=== PATIENT | female | born 1990 | race Caucasian/White ===

== ENCOUNTER 2019-01-22 21:32 | Emergency (ER) | payer OTHER ==
[~2019-01-22] VITALS: Ht 157.5 cm; Wt 70.3 kg
[~2019-01-22 21:32] MED LIST: BACTRIM DS TAB1 EACH PO; EXCEDRIN EXTRA1 EAC1 PO; IBUPROFEN400 MG PO; KEFLEX500 MG PO; MOTRIN IB200 MG PO; NAPROSYN500 MG PO; NORCO 5-325 TA1 EACH PO; PREVACID30 M1 PO; TYLENOL325 MG PO; ULTRAM50 MG PO; ZOFRAN ODT8 MG PO
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
[2019-01-23] MEDS ORDERED: PERCOCET 5-3251 EACH PO (00:04)
[2019-01-23] MEDS ORDERED: ZOFRAN8 MG PO (00:20)
[2019-01-23] MEDS ORDERED: ONDANSETRON ODT4 MG SL (07:31)
[2019-01-23] MEDS ORDERED: PROMETHAZINE HC25 M1 PO (08:38)
== END 2019-01-23 00:37 | disposition home or self-care (01) ==
LOC: ED 21:32
DX: S49.002A Unspecified physeal fracture of upper end of humerus, left arm, initial encounter for closed fracture (principal); F17.200 Nicotine dependence, unspecified, uncomplicated; Z90.49 Acquired absence of other specified parts of digestive tract; V89.2XXA Person injured in unspecified motor-vehicle accident, traffic, initial encounter
CPT/HCPCS: 70450; 71260; 72125; 73060; 74177; 80053; 82150; 82550; 83690; 85025; 86850; 86900; 86901; 96361; 99284-25; G0480; J1170; J2270; J2405; J2550; J7030; Q9967

== ENCOUNTER 2019-01-23 07:12 | Emergency (ER) | payer OTHER ==
[~2019-01-23] VITALS: Ht 165.1 cm; Wt 81.2 kg
[~2019-01-23 07:12] MED LIST changes: +PERCOCET 5-3251 EACH PO; +ZOFRAN8 MG PO
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
[2019-01-23] MEDS ORDERED: ONDANSETRON ODT4 MG SL (07:31)
[2019-01-23] MEDS ORDERED: PROMETHAZINE HC25 M1 PO (08:38)
== END 2019-01-23 10:13 | disposition home or self-care (01) ==
LOC: ED 07:12
PROC: 2W3BX1Z Immobilization of Left Upper Arm using Splint (ICD-10-PCS; principal; 2019-01-23)
DX: S42.302D Unspecified fracture of shaft of humerus, left arm, subsequent encounter for fracture with routine healing (principal); Z90.49 Acquired absence of other specified parts of digestive tract
CPT/HCPCS: 29105; 73060; 99283-25; J1170; J2550

== ENCOUNTER 2019-01-24 22:22 | Emergency (ER) | payer OTHER ==
[~2019-01-24] VITALS: Ht 165.1 cm; Wt 81.2 kg
[~2019-01-24 22:22] MED LIST changes: +ONDANSETRON ODT4 MG SL; +PROMETHAZINE HC25 M1 PO
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
== END 2019-01-25 01:20 | disposition home or self-care (01) ==
LOC: ED 22:22
DX: S42.302D Unspecified fracture of shaft of humerus, left arm, subsequent encounter for fracture with routine healing (principal); F17.200 Nicotine dependence, unspecified, uncomplicated; Z90.49 Acquired absence of other specified parts of digestive tract
CPT/HCPCS: 73060; 96372; 99283-25; J1170; J2550

== ENCOUNTER 2019-01-28 07:50 | Day surgery (SDC) | payer OTHER ==
[~2019-01-28] VITALS: Ht 165.1 cm; Wt 77.1 kg
[2019-01-28] MEDS ORDERED: CELECOXIB200 MG PO (10:50)
[2019-01-28] MEDS ORDERED: SENNA LAX8.6 MG PO (10:51)
[2019-01-28] MEDS ORDERED: GABAPENTIN300 MG PO (10:51)
[2019-01-28] MEDS ORDERED: OXYCODONE HCL5 MG PO (10:52)
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
--- NOTE | 2019-01-28 11:47 | NUR ---
PATIENT IS UP TO THE BATHROOM. PATIENT AMBULATES WELL AND REPORTS SUCCESSFUL VOID. PATIENT IS BACK IN BED. CRYO CUFF ON LEFT ARM. SCDS CONNECTED AND RUNNING. CALL LIGHT W/IN REACH. FAMILY AT BEDSIDE. ICED WATER AND SALTINE CRACKERS GIVEN.
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
== END 2019-01-28 12:55 | disposition home or self-care (01) ==
LOC: OPS 07:50 → DS 07:50 → OPS 10:15 → DS 10:15 → OPS 12:55
PROVIDERS: Specialist
PROC: 0PSG04Z Reposition Left Humeral Shaft with Internal Fixation Device, Open Approach (ICD-10-PCS; principal; 2019-01-28 10:15)
DX: S42.302A Unspecified fracture of shaft of humerus, left arm, initial encounter for closed fracture (principal); J45.909 Unspecified asthma, uncomplicated; F41.9 Anxiety disorder, unspecified; V89.2XXA Person injured in unspecified motor-vehicle accident, traffic, initial encounter
CPT/HCPCS: 01630; 64415; 73060; 76942; C1713; J0131; J0690; J1100; J1885; J2250; J2405; J2704; J3010

== ENCOUNTER → 2019-06-08 | Emergency (ER) | payer OTHER ==
[~2019-06-08] VITALS: Ht 162.6 cm; Wt 77.1 kg
[~2019-06-08] MED LIST changes: +CELECOXIB200 MG PO; +CYCLOBENZAPRINE10 MG PO; +GABAPENTIN300 MG PO; +OXYCODONE HCL5 MG PO; +SENNA LAX8.6 MG PO; +VALIUM5 MG PO
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
== END ==
LOC: ED 12:51
DX: S46.912A Strain of unspecified muscle, fascia and tendon at shoulder and upper arm level, left arm, initial encounter (principal); X50.9XXA Other and unspecified overexertion or strenuous movements or postures, initial encounter
CPT/HCPCS: 96372; 99283; J1885

== ENCOUNTER 2019-09-07 20:26 | Emergency (ER) | payer OTHER ==
[~2019-09-07] VITALS: Ht 162.6 cm; Wt 79.4 kg
--- OUTSIDE RECORDS SUMMARY | 2019-09-07 20:30 | XMS ---
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 Care History Medical/Surgical 06/09/2019 [facility] - Patient is currently established with [facility]. If patient is seen in the ED during business hours. Please contact CHWs at [facility]. Care Recommendation: This patient has had 5 or more Emergency Department visits in the last 12 months.\T\nbsp; Patient requires education on the scope and purpose of the ED as an acute care provider not a Primary Care Provider and should not be utilized for chronic conditions.\T\nbsp; These are guidelines and the provider should exercise clinical judgment when providing care. 01/26/2019 [facility] - PATIENT CURRENTLY WORKING WITH ORTHOPEDIC SURGEON DR ADAMS. Sanchez VISIT COUNT (12 MO.) 5 [facility] TOTAL 5 NOTE: Visits indicate total known visits. ED/UCC VISIT TRACKING (12 MO.) 09/07/2019 20:27 [facility] [place] TYPE: Emergency COMPLAINT: - TOE/FOOT INJURY 06/08/2019 15:11 [facility] [place] TYPE: Emergency COMPLAINT: - LEFT SHOULDER PAIN, INJ DIAGNOSES: - Other and unspecified ovrexrtn or strnous move/pstr, init - Strain unsp musc/fasc/tend at shldr/up arm, left arm, init - Pain in left shoulder 01/24/2019 22:23 [facility] [place] TYPE: Emergency [...] humerus, left arm, subs for fx w mariannen dontrell 01/22/2019 21:33 [facility] [place] TYPE: Emergency [...] visits to display in this time frame [id number]
== END 2019-09-07 22:55 | disposition home or self-care (01) ==
LOC: ED 20:26
DX: S90.31XA Contusion of right foot, initial encounter (principal); S90.111A Contusion of right great toe without damage to nail, initial encounter; X58.XXXA Exposure to other specified factors, initial encounter; F17.200 Nicotine dependence, unspecified, uncomplicated
CPT/HCPCS: 73630; 99283-25; A9270

== ENCOUNTER 2020-09-06 11:00 | Emergency (ER) | payer OTHER ==
[~2020-09-06] VITALS: Ht 162.6 cm; Wt 87.5 kg
--- OUTSIDE RECORDS SUMMARY | 2020-09-06 11:02 | XMS ---
PreManage Notification: FARHEEN WETZEL Security Manager Radio Events No recent Security Events currently on file CRITERIA MET - [facility] - Has Care Guidelines CARE PROVIDERS YAIMA BROWN Internal Medicine 06/09/2019-Current PHONE: [phone] Kraig has no Care Guidelines for this patient. Care History Medical/Surgical 09/08/2019 [facility] Patient will schedule a follow up visit with Dr. Brown when she has a chance to check her schedule. 06/09/2019 [facility] - Patient is currently established with [facility]. If patient is seen in the ED during business hours. Please contact CHWs at [facility]. Care Recommendation: This patient has had 5 or more Emergency Department visits in the last 12 months.\T\nbsp; Patient requires education on the scope and purpose of the ED as an acute care provider not a Primary Care Provider and should not be utilized for chronic conditions.\T\nbsp; These are guidelines and the provider should exercise clinical judgment when providing care. 01/26/2019 [facility] - PATIENT CURRENTLY WORKING WITH ORTHOPEDIC SURGEON DR MONTEJO. Daniel VISIT COUNT (12 MO.) [address] [facility] TOTAL 2 NOTE: Visits indicate total known visits. ED/UCC VISIT TRACKING (12 MO.) 09/06/2020 11:00 [facility] [place] TYPE: Emergency COMPLAINT: - NAUSEA, DIZZY 09/07/2019 20:27 [facility] [place] TYPE: Emergency COMPLAINT: - TOE/FOOT INJURY DIAGNOSES: - Pain in right foot - Nicotine dependence, unspecified, uncomplicated - Contusion of right foot, initial encounter - Contusion of right great toe without damage to nail, initial encounter - Exposure to other specified factors, initial encounter INPATIENT VISIT TRACKING (12 MO.) No inpatient visits to display in this time frame [id number]
[2020-09-06] MEDS ORDERED: ONDANSETRON ODT8 MG PO (13:21)
== END 2020-09-06 13:43 | disposition home or self-care (01) ==
LOC: ED 11:00
DX: H83.09 Labyrinthitis, unspecified ear (principal); R51.9 Headache, unspecified; F17.200 Nicotine dependence, unspecified, uncomplicated
CPT/HCPCS: 70450; 80053; 85025; 96374; 96375; 99284-25; J1885; J2405; J7030

== ENCOUNTER 2021-01-21 18:43 | Emergency (ER) | payer OTHER ==
[~2021-01-21] VITALS: Ht 162.6 cm; Wt 79.8 kg
[~2021-01-21 18:43] MED LIST changes: +ONDANSETRON ODT8 MG PO
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
[2021-01-21] MEDS ORDERED: HYDROCODON-ACE1 EA10 PO (20:37)
[2021-01-21] MEDS ORDERED: CRUTCH1 EACH (20:37)
[2021-01-26] MEDS ORDERED: ONDANSETRON ODT8 MG (09:27)
[2021-01-31] MEDS ORDERED: IBUPROFEN200 M1 PO (13:54)
[2021-01-31] MEDS ORDERED: ALEVE220 MG PO (13:54)
[2021-02-20] MEDS ORDERED: AMOX TR-K CLV1 EAC1 PO (22:12)
[2021-02-20] MEDS ORDERED: HYDROMORPHONE HC4 MG PO (22:13)
[2021-02-20] MEDS ORDERED: DULOXETINE HCL30 MG PO (22:13)
== END 2021-01-21 20:48 | disposition home or self-care (01) ==
LOC: ED 18:43
DX: S82.832A Other fracture of upper and lower end of left fibula, initial encounter for closed fracture (principal); W01.198A Fall on same level from slipping, tripping and stumbling with subsequent striking against other object, initial encounter; F17.200 Nicotine dependence, unspecified, uncomplicated
CPT/HCPCS: 73590; 73610; 73630; 99283-25

== ENCOUNTER 2021-02-01 05:45 | Day surgery (SDC) | payer OTHER ==
[~2021-02-01] VITALS: Ht 162.6 cm; Wt 80.0 kg
[~2021-02-01 05:45] MED LIST changes: +ALEVE220 MG PO; +CRUTCH1 EACH; +HYDROCODON-ACE1 EA10 PO; +IBUPROFEN200 M1 PO; +ONDANSETRON ODT8 MG
--- NOTE | 2021-02-01 06:16 | NUR ---
0603 COVID nasal swab obtained and sent to Lab, without incident. Cuauhtemoc Mallory, HIDE SALTER
--- NOTE | 2021-02-01 07:22 | NUR ---
[id number]: VERBAL ORDERS RECEIVED FROM DARION VINES FOR IV PAIN MEDICATION. PT STATES PAIN 8/10 IN LEFT ANKLE CONSTANT, STABBING AND SHARP. LEFT ANKLE ELEVATED WITH PILLOW TO HELP WITH PRESSURE/PAIN. SECOND VERIFICATION BY GARTH FINCH.
--- NOTE | 2021-02-01 08:02 | NUR ---
PT ALERT, ORIENTED AND SUPPORTED BY HER SISTER DARIUS. PT APPEARS TO BE DEALING WITH INJURY APPROPRIATELY. DARIUS SUPPORTIVE, WILL REMAIN HERE DURING SURGERY AND WHILE IN PACU. PT REQUESTED PRAYER, GAVE ENCOURAGEMENT AND WILL BE AVAILABLE NEEDED
[2021-02-01] MEDS ORDERED: HYDROCODON-ACE1 EA11 PO (09:04)
--- NOTE | 2021-02-01 09:38 | NUR ---
02/01/21 0938 Sheets,Kate 0905 PT ARRIVED TO PACU DROWSY AND TALKING TO RN. PT REPORTS PAIN IN LATERAL SIDE ON ANKLE, 7/10. PT DENIES NAUSEA. 0913 PAIN MEDICATION GIVEN PER COIL WINDING MACHINES SET UP MECHANIC. PT REPORTS SHE WANTS TO CRY DUE TO PAIN. 0916 PT REPORTS NO CHANGE IN PAIN, MEDICATION GIVEN PER EMAR. PT EATING ICE CHIPS. 0924 PT REPORTS PAIN A LITTLE BETTER, PT CONTINUE TO RATE 7/10. PAIN MEDICATION GIVEN. 0930 PT REPORTS PAIN IS BETTER, 4/10 AND TOLERBALE AT THIS TIME. 0938 HOB DECREASED AND PT RESTING WITH EYES CLOSED. O2 SAT 90%.
--- NOTE | 2021-02-01 10:13 | NUR ---
0955: PT ARRIVES TO DS RM 5 FROM PACU AWAKE AND ALERT. PT DENIES ANY NAUSEA BUT STATES THAT PAIN IN LEFT LATERAL ANKLE IS 6/10 "IN ONE SPOT" THAT THE NERVE BLOCK DID NOT COVER. DARION VINES AWARE OF ISSUE AND WILL ASSESS AFTER HIS CURRENT OR CASE. PT STATES, "I HAVE TO PEE!" AND A BEDSIDE COMMODE IS PROVIDED. 2 RN ASSIST TO COMMODE, ABLE TO VOID APPROX 350 MLS YELLOW URINE WITH NO PROBLEMS. PT BACK TO STRETCHER, LEFT ANKLE ELEVATED ON PILLOW. PT PROVIDED COFFEE AND CRACKERS IN ANTICIPATION OF PO PAIN MEDS. PT FAMILY AT BEDSIDE, CALL LIGHT WITHIN REACH. DC CRITERIA EXPLAINED TO PT.
--- NOTE | 2021-02-01 10:45 | NUR ---
[id number]: DARION VINES IN TO ASSESS PT PAIN AND PERFORM RESCUE NERVE BLOCK. DARION VINES CALLED TO EMERGENT CASE AND UNABLE TO PERFORM BLOCK, GIVES THIS RN VERBAL IV PAIN MEDICATION ORDERS. PT CONT TO HAVE PAIN ON LEFT LATERAL ASPECT OF ANKLE. TOLERATES PO WELL WITH NO COMPLAINTS OF NAUSEA. SISTER REMAINS AT BEDSIDE. [id number]: PT STATES PAIN IN LEFT ANKLE HAS RETURNED AND WOULD LIKE PAIN MEDICATION. THIS RN ENCOURAGES PO PAIN MEDS AND EDUCATES PT ABOUT LONGER LASTING EFFECTS THAN IV PAIN MEDS. PT STATES GETTING SICK WITH ORAL PAIN MEDICATION AND TABLET IS CRUSHED AND GIVEN IN PUDDING TO HELP WITH ABSORPTION. PT STATES THAT SHE WOULD LIKE TO WAIT FOR DARION VINES FOR NERVE BLOCK. THIS RN OFF OF FLOOR AT THIS TIME FOR LUNCH, VERBAL REPORT GIVEN TO GARTH CONDON AND CARE IS TRANSFERRED.
--- NOTE | 2021-02-01 11:08 | NUR ---
CHECKING ON PT IN DS AFTER HER RETURN FROM PACU. PT ALERT, SISTER AT BS. PT STATES HER PAIN IS AN 8, GARTH ESCOBEDO IS TO GIVE PAIN MEDS TO PT. ENCOURAGEMENT GIVEN, PT THANKED ME FOR CHECKING BACK.
--- NOTE | 2021-02-01 12:54 | NUR ---
1215: STEAM SERVICE INSPECTOR FINISHED REBLOCKING LEFT ANKLE. PATIENT DENIES PAIN. STATES LEFT ANKLE NUMB. IV DC'D WNL. TIP INTACT. DRESSING APPLIED. PATIENT GETTING DRESSED WITH HELP FROM SISTER. 1232: DISCHARGE INSTRUCTIONS GIVEN TO PATIENT AND SISTER. PATIENT DISCHARGED TO HOME WITH SISTER VIA WHEELCHAIR.
--- NOTE | 2021-02-06 08:20 | OR ---
[facility] [address] [place], [place] [address] Signed DATE OF OPERATION: 02/01/2021 SURGEON: Brigido Ocasio MD PREOPERATIVE DIAGNOSIS: Displaced lateral malleolus fracture left. POSTOPERATIVE DIAGNOSIS: Displaced lateral malleolus fracture left. PROCEDURE PERFORMED: Open reduction and internal fixation of left lateral malleolus. SUPERVISOR COLOR MAKING: Nohemi Shah PA-C. Nohemi was present and critical for all portions of procedure. ANESTHESIA: General. BLOOD LOSS: 50 mL. IMPLANTS: A 3 x 130 FibuLock with two 2.7 distal locking screws. BRIEF HISTORY: Farheen is a 30-year-old female, suffered a ground level fall fracturing her ankle with displacement of the mortise. Risks and benefits of operative treatment were discussed with her and she elected to proceed. DESCRIPTION OF PROCEDURE: Once consent was obtained, she was taken to the operating room after adequate anesthesia. She was placed on operating table, all downside pressure points were well padded. A hip bump was placed and a well-padded proximal thigh tourniquet was placed. The leg was then prepped and draped in a standard sterile fashion. The lateral malleolus was closed reduced using manual pressure and manipulation. It was then cross clamped using a pointed tenaculum through stab incisions. The reduction was anatomic. The distal lateral malleolus was then approached through a 1.5 cm incision. Blunt dissection was taken down to the tip of the malleolus. The guide tino for the FibuLock Electronically Signed By: BRIGIDO OCASIO MD 02/06/21 0820 PATIENT NAME: FARHEEN WETZEL OPERATIVE REPORT DATE OF : 88 REPORT #: [id number] PHYSICIAN: BRIGIDO OCASIO MD PCP: YAIMA BROWN DO REPORT IS CONFIDENTIAL AND NOT TO BE RELEASED WITHOUT AUTHORIZATION [facility] [address] [place], [place] [address] Signed drill was then placed at the tip of the malleolus in line with the canal. It was then advanced into the fibular canal and overdrilled using the large drill. This guide tino was then removed and the long reaming guide tino was placed through this drill hole up the femoral canal. This was over-reamed using a 3.1 mm reamer. The 3 x 130 FibuLock was then selected, placed on the insertion handle and placed into the distal fibula, advanced across the fracture and up into the body of the fibula. This was impacted until it was just slightly countersunk and the proximal fins were deployed. The two distal locking screws were then placed. Excellent reduction and screw placement were noted on the image intensifier. The insertion handle was then removed. The end cap was placed and the wounds were cleansed, closed with kanchan, and dressed with Allevyn, Madan wrap and placed back into a fracture boot. She tolerated the procedure well. All sponge, needle, and instrument counts were correct. Brigido Ocasio MD BA/SANDIEL /[id number] Copies: ~ Electronically Signed By: BRIGIDO OCASIO MD 02/06/21 0820 PATIENT NAME: FARHEEN WETZEL IVETT OPERATIVE REPORT DATE OF : 88 REPORT #: [id number] PHYSICIAN: BRIGIDO OCASIO MD PCP: YAIMA BROWN DO REPORT IS CONFIDENTIAL AND NOT TO BE RELEASED WITHOUT AUTHORIZATION
[2021-02-20] MEDS ORDERED: AMOX TR-K CLV1 EAC1 PO (22:12)
[2021-02-20] MEDS ORDERED: DULOXETINE HCL30 MG PO (22:13)
[2021-02-20] MEDS ORDERED: HYDROMORPHONE HC4 MG PO (22:13)
== END 2021-02-01 12:32 | disposition home or self-care (01) ==
LOC: DS 05:45
PROVIDERS: ATTEND Specialist
PROC: 0QSK04Z Reposition Left Fibula with Internal Fixation Device, Open Approach (ICD-10-PCS; principal; 2021-02-01 09:00)
DX: S82.62XA Displaced fracture of lateral malleolus of left fibula, initial encounter for closed fracture (principal); G89.18 Other acute postprocedural pain; F17.210 Nicotine dependence, cigarettes, uncomplicated; J45.909 Unspecified asthma, uncomplicated; W01.0XXA Fall on same level from slipping, tripping and stumbling without subsequent striking against object, initial encounter; Y93.01 Activity, walking, marching and hiking; Z88.6 Allergy status to analgesic agent; Z88.8 Allergy status to other drugs, medicaments and biological substances
CPT/HCPCS: 01480; 64445; 64447; 73600; 76942; 84702; 84703; A9270; C1713; C9803; J0690; J1100; J1170; J1885; J2001; J2250; J2405; J2795; J3010; J7121; U0003

== ENCOUNTER 2021-03-15 17:03 | Emergency (ER) | payer OTHER ==
[~2021-03-15] VITALS: Ht 162.6 cm; Wt 78.9 kg
[~2021-03-15 17:03] MED LIST changes: +AMOX TR-K CLV1 EAC1 PO; +DULOXETINE HCL30 MG PO; +HYDROCODON-ACE1 EA11 PO; +HYDROMORPHONE HC4 MG PO
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
[2021-03-15] MEDS ORDERED: LIDODERM1 EACH TOP (19:34)
== END 2021-03-15 20:08 | disposition home or self-care (01) ==
LOC: ED 17:03
DX: R07.81 Pleurodynia (principal); J34.89 Other specified disorders of nose and nasal sinuses; W17.89XA Other fall from one level to another, initial encounter; F17.200 Nicotine dependence, unspecified, uncomplicated; Z88.8 Allergy status to other drugs, medicaments and biological substances; Z79.899 Other long term (current) drug therapy
CPT/HCPCS: 71101; 99283-25; A9270